=== PATIENT | male | born 1995 | race Two or more races ===

== ENCOUNTER 2018-02-23 05:48 | Day surgery (SDC) | payer OTHER ==
[2018-02-23] MEDS ORDERED: EMLA CREAM 5GM (LIDOCAINE/PRILOCAINE) As Ordered (06:53)
[2018-02-23] MEDS ORDERED: fentaNYL 100 MCG/2 ML INJECTION (J3010) As Ordered (07:03)
[2018-02-23] MEDS ORDERED: MIDAZOLAM INJ 2 MG/2 ML VIAL (J2250) As Ordered (07:03)
[2018-02-23] MEDS ORDERED: ROCURONIUM BROMIDE 50 MG/5 ML VIAL As Ordered (07:05)
[2018-02-23] MEDS ORDERED: PROPOFOL 200 MG/20 ML VIAL As Ordered ×2 (07:08→07:09)
[2018-02-23] MEDS ORDERED: LIDOCAINE 2% INJ 100 MG/5 ML SDV (FOR ANES.) As Ordered (07:08)
[2018-02-23] MEDS: LR 1,000 ML IV (07:10)
[2018-02-23] MEDS ORDERED: UNASYN 3 GM VIAL As Ordered (07:25)
[2018-02-23] MEDS ORDERED: ONDANSETRON 4MG/2ML VIAL (J2405) As Ordered ×2 (07:43→09:02)
[2018-02-23] MEDS ORDERED: KETOROLAC 60 MG/2 ML VIAL (J1885) As Ordered (07:43)
[2018-02-23] MEDS ORDERED: dexameTHASONE 4 MG/ML 1ML VIAL (J1100) As Ordered ×2 (07:43)
[2018-02-23] MEDS: LIDOCAINE 2% W/ EPINEPHRINE 1.7 ML DENTAL INJ As Ordered (08:02)
[2018-02-23] MEDS ORDERED: PERCOCET 5MG/325MG TAB PO (09:15)
[2018-02-23] MEDS ORDERED: HYDROMORPHONE HCL 0.5 MG/ 0.5 ML SYRINGE (J1170 PER 1) IV (09:15)
[2018-02-23] MEDS ORDERED: fentaNYL 100 MCG/2 ML INJECTION (J3010) IV (09:15)
[2018-02-23] MEDS: ONDANSETRON 4MG/2ML VIAL (J2405) IV (09:15)
[2018-02-23] MEDS ORDERED: LR 1,000 ML IV (09:15)
== END 2018-02-23 10:18 | disposition home or self-care (01) ==
LOC: M SDC 05:48
DX: K01.1 Impacted teeth (principal); M26.30 Unspecified anomaly of tooth position of fully erupted tooth or teeth; F84.0 Autistic disorder; F41.9 Anxiety disorder, unspecified
CPT/HCPCS: D7210